=== PATIENT | female | born 1990 | race Caucasian/White ===

== ENCOUNTER 2019-07-03 18:55 | Emergency (ER) | payer OTHER ==
[~2019-07-03] VITALS: Ht 160 cm; Wt 81.6 kg
--- NOTE | 2019-07-03 19:29 | NUR ---
PT C/O CRAMPING AND SCANT BLEEDING ONCE. LMP 04/26/19. CONNECTED TO MONITORING. CALL LIGHT IN REACH. SO AT BEDSIDE. MD AT BEDSIDE. AWAITING ORDERS AT THIS TIME
--- NOTE | 2019-07-03 19:42 | NUR ---
UA COLLECTED VIA STRAIGHT CATH AND TAKEN TO LAB.
[2019-07-03 19:59] LABS: MICROSCOPIC NOT IND
[2019-07-03 20:02] LABS: CULTURE INDICATED? NO
--- NOTE | 2019-07-03 20:19 | NUR ---
PT BACK FROM US. LAB AT BEDSIDE.
[2019-07-03 20:24] LABS: BASOPHILS # (AUTO) 0.07 x10^3/uL (0-0.1); BASOPHILS % (AUTO) 1 % (0-1); EOSINOPHILS # (AUTO) 0.03 x10^3/uL (0-0.4); EOSINOPHILS % (AUTO) 0 % (1-7); LYMPHOCYTES % (AUTO) 27 % (22-44); MD NO; MEAN CORPUSCULAR HEMOGLOBIN 30.3 pg (27.0-34.8); MEAN CORPUSCULAR HGB CONC 33.8 g/dL (32.4-35.8); MEAN CORPUSCULAR VOLUME 89.7 fL (80-100); MEAN PLATELET VOLUME 7.1 fL (7.4-10.4); MONOCYTES # (AUTO) 0.72 x10^3/uL (0.2-0.8); MONOCYTES % (AUTO) 8 % (2-9); NEUTROPHILS # (AUTO) 5.69 x10^3/uL (1.8-6.8); NEUTROPHILS % (AUTO) 64 % (42-75); PLATELET COUNT 252 x10^3/uL (130-400); RED BLOOD COUNT 4.05 x10^6/uL (3.82-5.3); RED CELL DISTRIBUTION WIDTH 13.5 % (9.6-15.2)
[2019-07-03 20:35] LABS: ALBUMIN 3.5 g/dL (3.4-5.0); ANION GAP 5 mmol/L (5-15); CALCIUM 8.9 mg/dL (8.5-10.1); CHLORIDE 110 mmol/L (98-107); CREATININE 0.53 mg/dL (0.55-1.02)
[2019-07-03 20:47] VITALS: BP 109/63
--- NOTE | 2019-07-03 20:56 | NUR ---
ALL RESULTS ARE BACK AT THIS TIME. CHART UP FOR RECHECK.
== END 2019-07-03 21:20 | disposition home or self-care (01) ==
LOC: ED 21:15
DX: O20.0 Threatened abortion (principal); Z3A.01 Less than 8 weeks gestation of pregnancy
CPT/HCPCS: 36415; 76830; 80048; 81003; 82040; 84702; 85025; 86901; 99284